=== PATIENT | male | born 1960 | race Caucasian/White ===

== ENCOUNTER 2020-07-27 05:46 | Day surgery (SDC) | payer OTHER ==
[~2020-07-27] VITALS: Ht 170.2 cm; Wt 86.4 kg
[~2020-07-27 05:46] MED LIST: ALBU6.7H9 IH; ALOG12.52 PO; BECL10.62 IH; CETI10TA58 PO; DULO30CA96 PO; FAMO40TA7 PO; FLUT16H NASAL; GABA-1181 PO; LISI40TA9 PO; METF-446 PO; MONT10TA32 PO; SIMV-43 PO
[2020-07-27] MEDS ORDERED: LIDOCAINE 4% 50 ML SOLUTION TP ONE (05:47)
[2020-07-27] MEDS ORDERED: ALBUTEROL SULFATE 2.5 MG/0.5 ML NEB SOLUTION NEB ONE (05:47)
[2020-07-27] MEDS ORDERED: BENZOCAINE 20% 50 MCG/SPRAY 57 GM TP ONE (05:47)
[2020-07-27] MEDS ORDERED: LIDOCAINE 2% 30 ML JELLY TP ONE (05:47)
[2020-07-27] MEDS ORDERED: SODIUM CHLORIDE 0.9% 1,000 ML IV ONE (06:30)
[2020-07-27] MEDS ORDERED: MIDAZOLAM HCL 2 MG/2 ML VIAL ONE (06:48)
[2020-07-27] MEDS ORDERED: FentaNYL CITRATE PF 100 MCG/2 ML VIAL ONE (06:49)
[2020-07-27] MEDS ORDERED: SODIUM CHLORIDE 0.9% 1,000 ML ONE (06:54)
[2020-07-27 08:15] LABS: GLUCOMETER DEV NAME(LOC) SDS.; GLUCOSE,POINT OF CARE 128 MG/DL (70-110)
[2020-07-27] MEDS ORDERED: MethylPREDNISolone SOD SUCC 125 MG/2 ML VIAL IVP ONE (08:45)
[2020-07-27] MEDS ORDERED: MethylPREDNISolone SOD SUCC 125 MG/2 ML VIAL ONE (09:14)
[2020-07-27] MEDS ORDERED: OXYGEN THERAPY IH SCH (20:00)
== END 2020-07-27 10:10 | disposition home or self-care (01) ==
LOC: SURGERY 05:46
PROVIDERS: ATTEND Internal Medicine Critical Care Medicine
DX: J38.4 Edema of larynx (principal); B37.0 Candidal stomatitis; E11.9 Type 2 diabetes mellitus without complications
CPT/HCPCS: 31623; 31624; 71045; 82962; 87015; 87070; 87077; 87101; 87205; 87206; 87220; 88108; 88184; 88185; 88312; J2250; J2930; J3010; J7030; J7613; Z7610

== ENCOUNTER 2022-03-16 06:20 | Day surgery (SDC) | payer OTHER ==
[~2022-03-16] VITALS: Ht 170.2 cm; Wt 86.3 kg
[~2022-03-16 06:20] MED LIST changes: +ALBU6.7H14 IH; -ALBU6.7H9 IH; +DULO-114 PO; -DULO30CA96 PO; -FLUT16H NASAL; +FLUT16SP NASAL; +MONT-40 PO; -MONT10TA32 PO
[2022-03-16] MEDS ORDERED: SODIUM CHLORIDE 0.9% 1,000 ML IV ONE (06:30)
[2022-03-16 07:46] LABS: COVID AG,FIA SOURCE NASAL SWAB
[2022-03-16] MEDS ORDERED: MIDAZOLAM HCL 2 MG/2 ML VIAL ONE (07:58)
[2022-03-16] MEDS ORDERED: FentaNYL CITRATE PF 100 MCG/2 ML VIAL ONE (07:58)
[2022-03-16 08:41] LABS: GLUCOMETER DEV NAME(LOC) SDS.; GLUCOSE,POINT OF CARE 143 MG/DL (70-110)
[2022-03-16] MEDS ORDERED: MethylPREDNISolone SOD SUCC 125 MG/2 ML VIAL IVP ONE (09:30)
[2022-03-16] MEDS ORDERED: MethylPREDNISolone SOD SUCC 125 MG/2 ML VIAL ONE (09:51)
[2022-03-16] MEDS ORDERED: LIDOCAINE 4% 50 ML SOLUTION ONE (16:05)
[2022-03-16] MEDS ORDERED: BENZOCAINE 20% 50 MCG/SPRAY 57 GM ONE (16:05)
[2022-03-16] MEDS ORDERED: LIDOCAINE 2% 11 ML JELLY ONE (16:05)
[2022-03-16] MEDS ORDERED: ALBUTEROL SULFATE 2.5 MG/0.5 ML NEB SOLUTION NEB ONE (16:05)
[2022-03-16] MEDS ORDERED: OXYGEN THERAPY IH SCH (20:00)
== END 2022-03-16 10:55 | disposition home or self-care (01) ==
LOC: SURGERY 06:20
PROVIDERS: ATTEND Internal Medicine Critical Care Medicine
DX: J38.4 Edema of larynx (principal); B37.0 Candidal stomatitis; Z79.899 Other long term (current) drug therapy; Z20.822 Contact with and (suspected) exposure to COVID-19
CPT/HCPCS: 31623; 88112; 82962; 87206; 87101; 87220; 87070; 31624; 94640; 71045; 87015; 87426; J3010; J2250; J2930; Q9967; C9803; J7613; Z7610

== ENCOUNTER 2023-12-11 06:33 | Day surgery (SDC) | payer MEDICARE, OTHER ==
[~2023-12-11] VITALS: Ht 170.2 cm; Wt 78.2 kg
[~2023-12-11 06:33] MED LIST changes: +SODIUM CHLORIDE 0.9% 1,000 ML ONE
[2023-12-11] MEDS ORDERED: FentaNYL CITRATE PF 100 MCG/2 ML VIAL ONE (07:34)
[2023-12-11] MEDS ORDERED: MIDAZOLAM HCL 2 MG/2 ML VIAL ONE (07:34)
[2023-12-11 07:36] LABS: GLUCOMETER DEV NAME(LOC) SDS.; GLUCOSE,POINT OF CARE 123 MG/DL (70-110)
[2023-12-11] MEDS: SODIUM CHLORIDE 0.9% 1,000 ML IV ONE (07:55)
[2023-12-11] MEDS ORDERED: SEMA7TAB2 PO (08:07)
[2023-12-11] MEDS ORDERED: PRED-729 PO (08:07)
[2023-12-11] MEDS ORDERED: PROM118S5 PO (08:07)
[2023-12-11] MEDS ORDERED: DOXY-354 PO (08:07)
[2023-12-11] MEDS ORDERED: EMPA1TAB9 PO (08:07)
[2023-12-11 09:55] VITALS: PULSE 100; RESP 20; O2SAT 98
[2023-12-11] MEDS ORDERED: MethylPREDNISolone SOD SUCC 125 MG/2 ML VIAL ONE (09:59)
[2023-12-11] MEDS: MethylPREDNISolone SOD SUCC 125 MG/2 ML VIAL IVP ONE (10:27)
[2023-12-11] MEDS ORDERED: BENZOCAINE 20% 50 MCG/SPRAY 57 GM ONE (12:00)
[2023-12-11] MEDS ORDERED: ALBUTEROL SULFATE 2.5 MG/0.5 ML NEB SOLUTION NEB ONE (12:00)
[2023-12-11] MEDS ORDERED: LIDOCAINE 4% 50 ML SOLUTION ONE (12:00)
[2023-12-11] MEDS ORDERED: LIDOCAINE 2% 11 ML JELLY ONE (12:00)
== END 2023-12-11 12:20 | disposition left against medical advice (07) ==
LOC: SURGERY 06:33
PROVIDERS: ATTEND Internal Medicine Critical Care Medicine
DX: R05.3 Chronic cough (principal); R06.2 Wheezing; R49.0 Dysphonia; R04.2 Hemoptysis; J47.9 Bronchiectasis, uncomplicated; J18.1 Lobar pneumonia, unspecified organism; J38.4 Edema of larynx; B37.0 Candidal stomatitis; E11.9 Type 2 diabetes mellitus without complications
CPT/HCPCS: 31623; 31624; 71045; 82962; 87015; 87070; 87101; 87206; 87220; 94640; J2250; J2919; J3010; J7030; J7613; Z7610